=== PATIENT | female | born 1950 | race Caucasian/White ===

== ENCOUNTER 2017-01-06 05:21 | Emergency (ER) | payer MEDICARE, OTHER ==
[~2017-01-06] VITALS: Ht 157.5 cm; Wt 75.6 kg
[2017-01-06 05:21] VITALS: Ht 157.5 cm; Wt 75.6 kg
--- OUTSIDE RECORDS SUMMARY | 2017-01-06 05:25 | XMS REPORT | Continuity of Care Document ---
Author Author [facility] Organization [facility] Address Unknown Phone Unavailable Allergies Active Description Code Type Severity Reaction Onset Reported/Identified Relationship to Patient Clinical Status Yes acetaminophen acetaminophen Drug Allergy Unknown N/A 09/17/2005 Yes hydrocodone hydrocodone Drug Allergy Unknown N/A 09/17/2005 Yes Not Converted 208. See Text. Not Converted 208. See Text. Drug Allergy Unknown N/A 2005 Yes LORTAB LORTAB Drug Allergy Unknown SEVERE CONSTIPATION 10/21/2005 Yes No Known Contrast Allergies No Known Contrast Allergies Drug Allergy Unknown N/A 10/21/2005 Yes No Known Food Allergies No Known Food Allergies Drug Allergy Unknown N/A 10/21/2005 Yes NO KNOWN LATEX ALLERGY/SENSITI NO KNOWN LATEX ALLERGY/SENSITI Drug Allergy Unknown N/A 2005 Medications Problems Procedures Results Encounters ACCT No. Visit Date/Time Discharge Status Pt. Type Provider Facility Loc./Unit Complaint [id number] 12/12/2014 10:30:00 2014 10:30:00 Neel Birmingham DO
[2017-01-06] MEDS ORDERED: ASPI-557 PO (05:38)
[2017-01-06] MEDS ORDERED: CLARITAN PO (05:38)
[2017-01-06] MEDS ORDERED: LABE300T PO (05:38)
[2017-01-06] MEDS ORDERED: FLUT9.9S NAS (05:38)
[2017-01-06] MEDS ORDERED: HYDR12.530 PO (05:38)
[2017-01-06] MEDS ORDERED: MONT10TA25 PO (05:38)
[2017-01-06] MEDS ORDERED: CHOL100018 PO (05:38)
[2017-01-06] MEDS ORDERED: [UNRECOGNIZED DRUG - CODE] PO (05:38)
--- NOTE | 2017-01-06 06:07 | NUR ---
REPORT REPORT IS GIVEN TO NATALI FERNANDEZ
--- OUTSIDE RECORDS SUMMARY | 2017-01-06 06:14 | XMS REPORT | Continuity of Care Document ---
Author Author [facility] Organization [facility] Address Unknown Phone Unavailable Allergies Active [...] Status Pt. Type Provider Facility Loc./Unit Complaint [id number] 12/12/2014 10:30:00 2014 10:30:00 Neel Birmingham DO
--- NOTE | 2017-01-06 06:16 | NUR ---
IMAGING PT TO IMAGING AT THIS TIME VIA WHEEL CHAIR.
--- NOTE | 2017-01-06 06:26 | NUR ---
IMAGING PT RETURN TO ROOM FROM IMAGING AT THIS TIME VIA WHEEL CHAIR.
--- NOTE | 2017-01-06 06:45 | ERPDOC ---
Departure Disposition Decision Date: January 06, 2017 Disposition Decision Time: 08:08 Disposition: 02 TO [facility] Impression Impression Impression: Primary Impression: Pulmonary embolism Pulmonary embolism type: other Chronicity: acute Acute cor pulmonale presence: without acute cor pulmonale Qualified Codes: I26.99 - Other pulmonary embolism without acute cor pulmonale Severity: Severe Condition: Stabilized for Transport Seen By: Physician only Referrals: ANDRES MARADIAGA DO (Family) Problems/Meds/Labs Reviewed?: Yes Medications reviewed and manag: Yes Follow up care ordered?: Yes Mental Status: Alert, Oriented HPI - General Medical General Chief Complaint: Low Back Pain or Injury Stated Complaint: LOWER BACK PAIN Time Seen by Provider: 06:06 Source: patient Exam Limitations: no limitations HPI - General Medical Initial Comments 66-year-old female presents to the emergency department with a chief complaint of pain in the right posterior lateral mid back. Pain is moderate. Pain is sharp. Pain increases with movement and deep breathing. Patient also notes a productive cough of yellow sputum. She notes similar symptoms in the past when she has had pneumonia. She denies any other complaints or associated symptoms. No trauma or injury. She was at home when her symptoms began. Symptoms have been persistent in nature since onset. Symptoms began 3 days ago. Occurred At: home Onset: Gradual Allergies: Coded Allergies: No Known Allergies (Unverified , 01/06/17) Past History Patient Surgical History Lumpectomy Past Medical History Metabolic: diabetes, hypertension Family History Family History: Negative Social History Smoking Status: Never smoker Substance Use Type: does not use Alcohol Intake: none Review of Systems Constitutional Constitutional: DENIES: chills, fever Eyes General: DENIES: erythema, exudate Lids/Accessories: DENIES: erythema, swelling Vision: DENIES: acuity, blurring ENMT Ears: DENIES: drainage, erythema Hearing: DENIES: hearing loss Balance: DENIES: ataxia, falling to one side Sinuses: DENIES: congestion, pain Nose: DENIES: nosebleeds, pain Mouth/Throat: DENIES: painful swallowing, sore throat Teeth: DENIES: pain Jaw: DENIES: pain Cardiovascular Cardiac: DENIES: chest pain, dyspnea on exertion Rhythm/Rate: DENIES: irregular beat, palpitations Vascular: DENIES: pedal edema, unilateral swelling Pulmonary Respiratory: cough, sputum, DENIES: dyspnea, pleuritic chest pain GI Upper Abdomen: DENIES: nausea, pain, vomiting Lower Abdomen: DENIES: diarrhea, pain General: DENIES: burning, dysuria, frequency, urgency Musculoskeletal General: DENIES: joint pain, tenderness Integumentary Skin: DENIES: itching, rash Neurological General: DENIES: change in strength, headache, numbness, weakness Psychiatric Psychiatric: DENIES: emotional instability, suicidal ideation/attempt Endocrine Endocrine: DENIES: polydipsia, polyphagia Hematologic/Lymphatic Hematologic/Lymphatic: DENIES: frequent nosebleeds, lymphadenopathy Allergic/Immunological Allergic/Immunoligical: DENIES: allergic reactions, hives Physical Exam General General Nourishment: well nourished, well developed, appears stated age, no acute distress, adult General Body Habitus: well groomed Vitals and Pain First Documented Vital Signs Date Time Temp Pulse Resp B/P Pulse Ox O2 Delivery O2 Flow Rate FiO2 01/06/17 05:21 98.0 94 20 137/79 94 01/06/17 06:30 Room Air Weight: Kilograms: 75.600 Height (feet): 5 Height (inches): 2.00 Triage Pain Scale: RN VS reviewed by Provider: Yes Normal Exams: Head: Normocephalic w/o trauma Eyes: Pupils are PERRLA w/ EOMI, No scleral icterus, irritation, or foreign bodies noted ENMT: No facial trauma, nasal exudates, pharyngeal erythema, or exudates are noted Dental: No fractured, loose, or missing teeth noted Neck: Full range of motion, without adenopathy, JVD, bruits or thyromegaly Chest/Resp: Clear all bustillos, with good airflow, and symmetry bilaterally CV: Regular rate and rhythm, without murmur or gallop, Pulses 2+ all extremities, capillary refill, <2 seconds all ext., no pedal edema noted Abdomen: Bowel sounds positive, soft, non-tender, non-distended, no hepatosplenomegaly, masses or bruits noted Lymphatic: No lymphadenopathy, or lymphedema noted Musculoskeletal: No tenderness, or deformity noted, good range of motion, all extremities Integumentary: No rashes, hives, or bruising noted, hair and nails, without abnormality Neurologic: Patient is alert, and oriented, cranial nerves, motor/sensory/ cerebellar, exams w/o gross deficits, to observation Psychiatric: Patient exhibits, appropriate attention, emotion and affect Differential Diagnoses Considering: Metabolic, Pneumonia, Pulmonary Embolus, UTI Progress Results/Orders Orders Procedure Category Date Status Time Cbc W/Auto LAB 01/06/17 Complete Diff-Reflex Manual Cmp - Comprehensive LAB 01/06/17 Complete Metabolic Troponin I W LAB 01/06/17 Complete Hemolysis Index EKG EKG 01/06/17 Taken Ua, Dip Wreflex LAB 01/06/17 Complete Microsc & Disintegrator Feeder 06:12 Chest, Pa & Lateral RAD 01/06/17 Resulted 06:12 Iv Lock (Ed Only) EDM 01/06/17 Transmitted 06:12 Fentanyl (Fentanyl) PHA 01/06/17 Complete 07:30 Ondansetron Inj PHA 01/06/17 Complete (Zofran) 07:30 D-Dimer LAB 01/06/17 Complete 07:[address] 01/06/17 Resulted 07:50 Normal Saline (Ns) PHA 01/06/17 Complete 08:00 Iohexol (Omnipaque) PHA 01/06/17 Complete 07:59 Normal Saline (Ns) PHA 01/06/17 Complete 08:00 Saline Flush (Iv PHA 01/06/17 Complete Flush) 08:00 Lab Results Laboratory Tests Test 01/06/17 06:35 01/06/17 07:09 White Blood Count 11.2T/MM3 Red Blood Count 4.35M/MM3 Hemoglobin 13.8GM/DL Hematocrit 42.8% Mean Corpuscular Volume 98.4UM3 Mean Corpuscular Hemoglobin 31.7UUG Mean Corpuscular Hemoglobin Concent 32.2GM/DL RDW Standard Deviation 46.1FL Platelet Count 231T/MM3 Mean Platelet Volume 10.3UM3 Immature Granulocyte % (Auto) 0.3% Neutrophils (%) (Auto) 73.1% Lymphocytes (%) (Auto) 15.1% Monocytes (%) (Auto) 9.8% Eosinophils (%) (Auto) 1.4% Basophils (%) (Auto) 0.3% Absolute Immature Granulocyte (auto 0.03T/MM3 Absolute Neutrophils (auto) 8.2T/MM3 Absolute Lymphocytes (auto) 1.7T/MM3 Absolute Monocytes (auto) 1.1T/MM3 Absolute Eosinophils (auto) 0.2T/MM3 Absolute Basophils (auto) 0.0T/MM3 D-Dimer 687NG/ML Turbidity < 20 Sodium Level 147MEQ/L Potassium Level 4.2MEQ/L Chloride Level 107MEQ/L Carbon Dioxide Level 27MEQ/L Anion Gap 13MEQ/L Blood Urea Nitrogen 14.0MG/DL Creatinine 0.6MG/DL Glomerular Filtration Rate Calc 100 BUN/Creatinine Ratio 23RATIO Glucose Level 114MG/DL Calculated Osmolality 284MOSM/KG Calcium Level 9.9MG/DL Total Bilirubin 0.70MG/DL Icterus Index < 2 Aspartate Amino Transf (AST/SGOT) 21U/L Alanine Aminotransferase (ALT/SGPT) 33U/L Alkaline Phosphatase 108U/L Troponin I < 0.012ng/ml Total Protein 7.3G/DL Albumin 4.4G/DL Globulin 2.9G/DL Albumin/Globulin Ratio 1.5RATIO Chemistry Specimen Hemolysis 50 Urine Collection Type Cleancatch-midstream Urine Color Yellow Urine Turbidity Clear Urine pH 6.0 Urine Specific [place] 1.015 Urine Protein Negative Urine Glucose (UA) Negative Urine Ketones Negative Urine Blood Negative Urine Nitrite Negative Urine Bilirubin Negative Urine Urobilinogen NormalEU/DL Urine Leukocyte Esterase Negative Urinalysis Comment Microscopic not ind. Medications Current ED Medications Fentanyl (Fentanyl) 50 mcg O ONCE IV Last administered on 01/06/17 07:31; Start 01/06/17 at 07:30; Stop 01/06/17 at 07:31; Status DC Ondansetron HCl 4 mg 4 mg O ONCE IV Last administered on 01/06/17 07:31; Start 01/06/17 at 07:30; Stop 01/06/17 at 07:31; Status DC Sodium Chloride (NS) 500 ml @ 999 mls/hr Q31M ONCE IV Last administered on 08:57; Start 01/06/17 at 08:00; Stop 01/06/17 at 08:30; Status DC Iohexol 1 bottle 1 bottle STK-MED ONCE .ROUTE ; Start 01/06/17 at 07:59; Stop at 08:00; Status DC Sodium Chloride (NS) 100 ml @ As Directed STK-MED ONCE .ROUTE ; Start 01/06/17 at 08:00; Stop 01/06/17 at 08:01; Status DC Sodium Chloride (Iv Flush) 10 ml STK-MED ONCE .ROUTE ; Start 01/06/17 at 08:00; Stop 01/06/17 at 08:01; Status DC Progress Progress Labs / imaging were discussed in detail with the patient and family and questions are answered. Patient is given IV hydration. She is given analgesic and antiemetic medications intravenously which improved her symptoms. Patient is discussed with the hospitalist Dr. Joseph who is not comfortable keeping the patient at [facility] due to the potential pulmonary hemorrhage and infarct. Patient is accepted by Dr. Hernandez to [facility] as CT surgery is not available at [facility] should the patient have potential complication from anticoagulation the service would be needed. Risk versus benefit of starting the patient on anticoagulation at this time is discussed in detail with the patient. Accepting physician requests to hold anticoagulation until the patient arrives at [facility] where CT surgery is available. This is discussed with the patient in detail who declines to start anticoagulation in the emergency department and requests to wait until she arrives to [facility]. She is not comfortable starting the anticoagulation prior to transport. She verbalizes agreement and understanding of the risks versus benefits. Patient is medically stable for transfer to [facility] at this time. She is in agreement with the current plan of management. EKG EKG : Rate: 60-100 Rhythm: sinus [place]: normal QRS: normal Intervals: normal ST/T: normal Interpreted by: signing physician CT CT : CT: Chest IV contrast Interpretation: Abnormal (multiple segmental and subsegmental pulmonary emboli with potential pulmonary hemorrhage.), Reviewed Written Report RADU EARL DO January 06, 2017 06:45
[2017-01-06 06:48] LABS: BASOPHILS % (AUTO) 0.3 % (0-2); EOSINOPHILS # (AUTO) 0.2 T/MM3 (0-0.5); EOSINOPHILS % (AUTO) 1.4 % (0-4); HCT - HEMATOCRIT 42.8 % (36-46); HGB - HEMOGLOBIN 13.8 GM/DL (12-16); IMMATURE GRANULOCYTE # (AUTO) 0.03 T/MM3 (0.00-0.03); IMMATURE GRANULOCYTE % (AUTO) 0.3 % (0.0-0.5); LYMPHOCYTES # (AUTO) 1.7 T/MM3 (1-4.8); LYMPHOCYTES % (AUTO) 15.1 % (23-45); MEAN CORPUSCULAR HGB 31.7 UUG (26-34); MEAN CORPUSCULAR HGB CONC(MCHC 32.2 GM/DL (31-37); MEAN CORPUSCULAR VOLUME 98.4 UM3 (80-100); MEAN PLATELET VOLUME 10.3 UM3 (9.4-12.4); MONOCYTES # (AUTO) 1.1 T/MM3 (0-0.8); MONOCYTES % (AUTO) 9.8 % (0-9.0); NEUTROPHILS #(AUTO)-ABSOLUTE 8.2 T/MM3 (1.8-7.7); NEUTROPHILS % (AUTO) 73.1 % (33-66); RED BLOOD COUNT 4.35 M/MM3 (4.00-5.20); WBC - WHITE BLOOD COUNT 11.2 T/MM3 (4.5-11.0)
[2017-01-06 06:57] LABS: ALBUMIN 4.4 G/DL (3.5-5.0); ALBUMIN/GLOBULIN RATIO 1.5 RATIO (1.1-2.2); ALKALINE PHOSPHATASE 108 U/L (38-126); ALT (SGPT) 33 U/L (9-52); ANION GAP 13 MEQ/L (5-15); AST (SGOT) 21 U/L (14-36); BUN/CREATININE RATIO 23 RATIO (6-26); CALCIUM 9.9 MG/DL (8.4-10.2); CHLORIDE 107 MEQ/L (98-107); CO2 - CARBON DIOXIDE 27 MEQ/L (22-30); CREATININE 0.6 MG/DL (0.7-1.2); GLOMERULAR FILTRATION RATE 100; GLUCOSE 114 MG/DL (65-110); POTASSIUM 4.2 MEQ/L (3.6-5); SODIUM 147 MEQ/L (134-144); TOTAL PROTEIN 7.3 G/DL (6.3-8.2)
--- NOTE | 2017-01-06 07:22 | DI ---
INDICATION: ITS.REASON: cough PROCEDURE: CHEST 2-VIEWS UPRIGHT (PA \T\ LAT) Encounter: Initial COMPARISON: None FINDINGS: The lungs are clear without evidence of focal abnormal airspace opacity. There is no pleural effusion or pneumothorax. The heart size, mediastinal contours and pulmonary vascularity are within normal limits. IMPRESSION: No acute cardiopulmonary disease. .
[2017-01-06 07:27] LABS: COLOR,URINE YELLOW (YELLOW); NITRITE,URINE NEGATIVE (NEGATIVE)
[2017-01-06 07:28] LABS: BLOOD, URINE NEGATIVE (NEGATIVE); UROBILINOGEN,URINE NORMAL (NORMAL)
[2017-01-06] MEDS ORDERED: ONDANSETRON 4mg/2ml INJECTION IV ONE (07:30)
[2017-01-06] MEDS ORDERED: FENTANYL 100mcg/2ml INJECTION IV ONE (07:30)
[2017-01-06 07:50] LABS: LEUKOCYTE ESTERASE ,URINE NEGATIVE (NEGATIVE)
--- NOTE | 2017-01-06 07:53 | NUR ---
Provider Dr. Gilbert is currently @ bedside in treatment room 1 discussing results and possible treatment options with patient @ this time.
[2017-01-06] MEDS ORDERED: IOHEXOL 350 MG/ML 75ml INJECTION ONE (07:59)
[2017-01-06] MEDS ORDERED: NORMAL SALINE 500 ML IV ONE (08:00)
[2017-01-06] MEDS ORDERED: SALINE FLUSH 10ml SYRINGE ONE (08:00)
[2017-01-06] MEDS ORDERED: NORMAL SALINE 100 ML ONE (08:00)
--- NOTE | 2017-01-06 08:02 | NUR ---
CT PT TO CT AT THIS TIME.
--- NOTE | 2017-01-06 08:14 | NUR ---
Return to ED Pt returned from Rad department via cart @ this time. Pts spouse is at bedside. Safety measures are in place
--- NOTE | 2017-01-06 08:31 | DI ---
Indication: ITS.REASON: pain PROCEDURE: CTA PULMONARY EMBOLI: Encounter: Initial Comparison: Chest x-ray from today Technique: Axial CT pulmonary angiographic phase images were performed through the chest after the administration of intravenous contrast. Coronal and Sagittal MIP reconstructed images were created and reviewed. Automated Exposure Control and Iterative Reconstruction dose reducing techniques were utilized. Contrast: Omnipaque 350 74 mL Findings: Pulmonary arteries: Exam is diagnostic to the subsegmental pulmonary arterial level. There is significant thrombus seen within the segmental and subsegmental right lower lobe pulmonary arterial branches. No other areas of involvement are appreciated. Other findings: There is some patchy airspace groundglass opacity and trace right pleural effusion. Minimal left basilar dependent atelectasis. The remaining lung bustillos are clear. No pneumothorax. The central airways are patent. No axillary or mediastinal adenopathy. Heart size is normal. No pericardial effusion. The upper abdomen shows no acute findings. Impression: 1. Significant right lower lobe segmental and subsegmental pulmonary emboli. 2. Right lower lobe airspace opacity could be due to pulmonary hemorrhage, developing pulmonary infarct, superimposed atelectasis or pneumonia. These results were discussed with Dr. Gilbert in the emergency department at 0820 on January 06, 2017 .
[2017-01-06 09:45] VITALS: BP 149/86; PULSE 97; RESP 20; TEMP 98; O2SAT 96
--- NOTE | 2017-01-06 09:45 | NUR ---
TRANSFER TO [place] PT TRANSFERRED VIA [facility] TO [place] AT THIS TIME. PT AOX3. IV SITE IN PLACE. PAIN 7-9/10 AND CONSTANT. PT TO EMS CART INDEPENDENTLY. IN OWN [place]. AT SIDE. NO SIGN OF DISTRESS AT THIS TIME.
--- NOTE | 2017-01-06 09:51 | NUR ---
REPORT REPORT CALLED TO NATALI FELDER AT [facility] AT THIS TIME.
== END 2017-01-06 09:45 | disposition short-term general hospital (02) ==
LOC: ED 05:21
DX: I26.99 Other pulmonary embolism without acute cor pulmonale (principal); I10 Essential (primary) hypertension
CPT/HCPCS: 71020; 71275; 80053; 81003; 84484; 85025; 85379; 93005; 96374; 96375; 99285; J2405; J3010; J7050; Q9967